=== PATIENT | male | born 1950 | race African-American/Black ===

== ENCOUNTER 2024-05-14 04:11 | Inpatient (IN) | payer OTHER, MEDICARE ==
[~2024-05-14] VITALS: Ht 180.3 cm; Wt 92.5 kg
[2024-05-14] MEDS: SODIUM CHLORIDE 0.9% 250 ML IV ONE (04:30)
[2024-05-14 05:37] LABS: BASOPHILS % 0.6 % (0.0-2.0); EOSINOPHILS % 7.4 % (0.0-5.0); HEMATOCRIT. 42.6 % (42.0-52.0); HEMOGLOBIN. 14.1 g/dL (14.0-18.0); LYMPHOCYTES % 50.5 % (20.0-50.0); MEAN CORPUSCULAR HEMOGLOBIN 32.6 pg (28.0-32.0); MEAN CORPUSCULAR HGB CONC 33.2 g/dL (31.0-37.0); MEAN CORPUSCULAR VOLUME 98.2 fL (80.0-94.0); MEAN PLATELET VOLUME 8.5 fl (7.4-10.4); NEUTROPHILS % 32.5 % (40.0-76.0); PLATELET 146 x1000/uL (130-400); RED BLOOD CELL COUNT 4.34 mill/uL (4.7-6.1); RED CELL DISTRIBUTION WIDTH 14.2 % (11.6-14.6); WHITE BLOOD COUNT 3.1 x1000/uL (4.5-11.0)
[2024-05-14 05:47] LABS: CHLORIDE 109 mEq/L (98-107); POTASSIUM 3.7 mEq/L (3.5-5.1); SODIUM 144 mEq/L (136-145)
[2024-05-14 05:48] LABS: CALCIUM 9.5 mg/dL (8.7-10.4); CARBON DIOXIDE 22 mEq/L (21-32)
[2024-05-14 05:53] LABS: CREATININE 1.2 mg/dL (0.6-1.3); GLUCOSE 95 mg/dL (70-105); UREA NITROGEN BLOOD 24 mg/dL (9-23)
[2024-05-14 05:54] LABS: TROPONIN I HIGH SENSITIVITY 6 ng/L (3.0-53)
[2024-05-14 06:00] LABS: PARTIAL THROMBOPLASTIN TIME 27.4 sec (23.4-31.0)
[2024-05-14 06:03] LABS: ETHANOL BLOOD < 10 mg/dL (<10)
[2024-05-14] MEDS: ACETAMINOPHEN 325MG TABLET PO ONE (08:22)
[2024-05-14] MEDS: SODIUM CHLORIDE 0.9% 1,000 ML IV SCH (11:00)
[2024-05-14] MEDS ORDERED: DIPHENHYDRAMINE 50MG/ML VIAL IV PRN (11:00)
[2024-05-14] MEDS ORDERED: ONDANSETRON HCL 4MG/2ML INJ IV PRN (11:00)
[2024-05-14] MEDS ORDERED: ZOLPIDEM TARTRATE 5MG TABLET PO PRN (11:00)
[2024-05-14] MEDS ORDERED: MAGNESIUM/ALUMINUM HYDROXIDE/SIMETHICONE 30ML UDC PO PRN (11:00)
[2024-05-14] MEDS ORDERED: ACETAMINOPHEN 325MG TABLET PO PRN (11:00)
[2024-05-14 13:40] VITALS: BP 120/67; PULSE 53; RESP 16; TEMP 36.5848
[2024-05-14 16:00] VITALS: BP 138/59; PULSE 52; RESP 18; O2SAT 98
[2024-05-14] MEDS ORDERED: SUCRALFATE 1G TABLET PO PRN (17:15)
[2024-05-14] MEDS ORDERED: DEXL60CA3 MT (17:23)
[2024-05-14] MEDS ORDERED: EZET10TA81 MT (17:23)
[2024-05-14] MEDS ORDERED: FAMO40TA70 MT (17:23)
[2024-05-14] MEDS ORDERED: LOSA100T33 MT (17:23)
[2024-05-14] MEDS ORDERED: AMLO5TAB88 MT (17:23)
[2024-05-14] MEDS ORDERED: CLOP-31 MT (17:23)
[2024-05-14] MEDS ORDERED: SUCR1TAB30 PO (17:23)
[2024-05-14] MEDS: ACETAMINOPHEN 325MG TABLET PO PRN (18:25)
[2024-05-14 20:00] VITALS: BP 118/76; PULSE 61; RESP 19; TEMP 36.44736; O2SAT 98
[2024-05-14] MEDS ORDERED: FAMOTIDINE 20MG TABLET PO SCH (21:00)
[2024-05-14] MEDS: CLOPIDOGREL 75MG TABLET PO NR (21:26)
[2024-05-14] MEDS: FAMOTIDINE 20MG TABLET PO SCH (21:26)
[2024-05-14] MEDS: OSELTAMIVIR 75MG CAPSULE PO SCH (21:26)
[2024-05-15] VITALS: BP 123/68; PULSE 68; RESP 18; TEMP 36.28068; O2SAT 98
[2024-05-15 04:00] VITALS: BP 119/69; PULSE 52; RESP 18; TEMP 36.61404; O2SAT 98
[2024-05-15 08:00] VITALS: BP 121/65; PULSE 61; RESP 18; TEMP 36.3918; TEMP 36.39180; O2SAT 97
[2024-05-15] MEDS: PANTOPRAZOLE 40MG DR TABLET PO SCH (08:53)
[2024-05-15] MEDS: CLOPIDOGREL 75MG TABLET PO SCH (08:53)
[2024-05-15 13:21] LABS: CHLORIDE 109 mEq/L (98-107); POTASSIUM 4.4 mEq/L (3.5-5.1); SODIUM 142 mEq/L (136-145)
[2024-05-15 13:22] LABS: CALCIUM 8.8 mg/dL (8.7-10.4); CARBON DIOXIDE 23 mEq/L (21-32)
[2024-05-15 13:27] LABS: GLUCOSE 94 mg/dL (70-105); UREA NITROGEN BLOOD 14 mg/dL (9-23)
[2024-05-15 13:29] LABS: ALANINE AMINOTRANSFERASE 14 IU/L (10-49); ALBUMIN 3.9 g/dL (3.2-4.8); ASPARTATE AMINOTRANSFERASE 24 IU/L (<34); BILIRUBIN TOTAL 0.4 mg/dL (0.1-1.0); PROTEIN TOTAL 6.7 g/dL (6.0-8.3)
[2024-05-15 13:42] LABS: BASOPHILS % 0.7 % (0.0-2.0); EOSINOPHILS % 6.3 % (0.0-5.0); HEMATOCRIT. 40.8 % (42.0-52.0); HEMOGLOBIN. 13.4 g/dL (14.0-18.0); MEAN CORPUSCULAR HGB CONC 32.9 g/dL (31.0-37.0); MEAN CORPUSCULAR VOLUME 97.4 fL (80.0-94.0); MEAN PLATELET VOLUME 8.7 fl (7.4-10.4); PLATELET 150 x1000/uL (130-400); RED BLOOD CELL COUNT 4.19 mill/uL (4.7-6.1); RED CELL DISTRIBUTION WIDTH 13.8 % (11.6-14.6); WHITE BLOOD COUNT 3.2 x1000/uL (4.5-11.0)
[2024-05-15 13:53] VITALS: BP 117/65; PULSE 59; TEMP 97.6; O2SAT 99
[2024-05-16 10:44] LABS: *AMPHETAMINES SCREEN URINE NEGATIVE (NEGATIVE); *BARBITURATES SCREEN URINE NEGATIVE (NEGATIVE); *BENZODIAZEPINES SCREEN URINE NEGATIVE (NEGATIVE); *COCAINE SCREEN URINE NEGATIVE (NEGATIVE); METHADONE URINE SCREEN NEGATIVE (NEGATIVE)
[2024-05-16 10:45] LABS: CANNABINOID URINE SCREEN NEGATIVE (NEGATIVE); ECSTASY MDMA SCREEN URINE NEGATIVE (NEGATIVE); OPIATES URINE SCREEN NEGATIVE (NEGATIVE); PHENCYCLIDINE URINE SCREEN NEGATIVE (NEGATIVE)
== END 2024-05-15 15:30 | disposition home or self-care (01) | DRG 74 ==
LOC: ER 04:11 → 7WST 08:43 → EDBEDREQ 09:27
PROVIDERS: ADMIT Internal Medicine; ATTEND Internal Medicine
DX: G90.89 Other disorders of autonomic nervous system (principal); I25.10 Atherosclerotic heart disease of native coronary artery without angina pectoris; J11.1 Influenza due to unidentified influenza virus with other respiratory manifestations; K21.9 Gastro-esophageal reflux disease without esophagitis; R00.1 Bradycardia, unspecified; I10 Essential (primary) hypertension; N28.1 Cyst of kidney, acquired; K76.89 Other specified diseases of liver; I25.2 Old myocardial infarction; Z86.74 Personal history of sudden cardiac arrest
CPT/HCPCS: 36415; 71045; 74176; 76700; 80048; 80053; 80305; 80320; 83880; 84484; 85025; 85379; 93005; 93970; 95816; 99285; J7050; G0480